=== PATIENT | female | born 1990 | race Caucasian/White ===

== ENCOUNTER 2016-09-22 10:09 | Emergency (ER) | payer MEDICAID ==
[2016-09-22 10:45] VITALS: BP 109/64; TEMP 98.2; O2SAT 99
--- NOTE | 2016-09-22 11:11 | ED.PDOC ---
History of Present Illness - General Chief Complaint: Skin/Abrasion/Tear Stated Complaint: abscess Time Seen by Provider: 09/22/16 11:01 Source: patient, RN notes reviewed, Vital Signs reviewed Exam Limitations: no limitations - History of Present Illness Initial Comments: Patient is a 26 y/o female who had a small papule on her anterolateral left thigh two days ago. Since that time, it has become more red and painful. Now the redness is increased and the pain feels like it goes down to her bone. She denies any fever or chills. Timing/Duration: getting worse, other - 2 days ago Severity: moderate Improving Factors: nothing Worsening Factors: nothing Associated Symptoms: denies symptoms Allergies/Adverse Reactions: Allergies Latex Allergy (Intermediate, Verified 09/22/16 10:45) Home Medications: Ambulatory Orders Sulfamethoxazole-Trimethoprim [Bactrim Ds 800-160 mg] 1 tab PO BID #14 tab 09/22 Review of Systems - Review of Systems Constitutional: States: no symptoms reported EENTM: States: no symptoms reported Respiratory: States: no symptoms reported Cardiology: States: no symptoms reported Gastrointestinal/Abdominal: States: no symptoms reported Genitourinary: States: no symptoms reported Musculoskeletal: States: no symptoms reported Skin: States: change in color, lesions Neurological: States: no symptoms reported Endocrine: States: no symptoms reported Hematologic/Lymphatic: States: no symptoms reported Past Medical History (General) - Patient Medical History Hx Cardiac Disorders: No Hx Hypertension: No Hx Diabetes: No Hx Cancer: Yes - skin - Vaccination History Hx Tetanus, Diphtheria Vaccination: No Hx Influenza Vaccination: No Hx Pneumococcal Vaccination: No - Social History Hx Tobacco Use: Yes Cigarettes Packs Per Day: 1 Hx Alcohol Use: No Hx Substance Use: No Hx Substance Use Treatment: No Hx Depression: No - Activities of Daily Living Hospice Agency (if applicable):: None - Female History Patient is a Female of Child Bearing Age (10 -59 yrs old): Yes Patient : No Family Medical History - Family History Mother Family History: No Known Living Status: Still Living Physical Exam - Physical Exam General Appearance: Alert, Comfortable, No apparent distress Eye Exam: bilateral normal Ears, Nose, Throat: hearing grossly normal Neck: full range of motion Respiratory: lungs clear, normal breath sounds, no respiratory distress, no accessory muscle use Cardiovascular/Chest: regular rate, rhythm, no edema, no gallop, no murmur Gastrointestinal/Abdominal: normal bowel sounds, non tender, soft, no organomegaly Back Exam: normal inspection Extremity: normal range of motion, no pedal edema, no calf tenderness Neurologic: alert, normal mood/affect, oriented x 3 Skin Exam: other - 2 cm round indurated lesion with an additiona 2 cm erythema surrounding it. Tender and hot to touch. No fluctuance. This is on the anterolateral left mid-thigh. Progress - Results/Orders Results/Orders: 09/22/16 10:35 Temperature 98.2 F Pulse Rate [ 88 pulse ox] Respiratory 18 Rate Blood Pressure 109/64 [Left Arm] O2 Sat by Pulse 99 Oximetry Departure - Departure Clinical Impression: Cellulitis Qualifiers: Site of cellulitis: extremity Site of cellulitis of extremity: lower extremity Laterality: left Qualifier Code: (L03.116) Cellulitis of left lower limb Time of Disposition: 11:15 Disposition: Discharge to Home or Self Care Condition: Excellent Departure Forms: ED Discharge - Pt. Copy, Patient Portal Self Enrollment Instructions: Cellulitis, DI for Cellulitis -- Adult Diet: resume usual diet Prescriptions: Sulfamethoxazole-Trimethoprim [Bactrim Ds 800-160 mg] 1 tab PO BID #14 tab Home Medications: Ambulatory Orders Sulfamethoxazole-Trimethoprim [Bactrim Ds 800-160 mg] 1 tab PO BID #14 tab 09/22 Additional Instructions: Follow up if lesion gets larger with increased pain.
== END 2016-09-22 11:25 | disposition left against medical advice (07) ==
LOC: ER 10:09
DX: L03.116 Cellulitis of left lower limb (principal); Z87.891 Personal history of nicotine dependence; Z91.040 Latex allergy status; Z85.828 Personal history of other malignant neoplasm of skin

== ENCOUNTER → 2016-11-18 | Outpatient (CLI) | payer SELFPAY | END | disposition home or self-care (01) | LOC: YCFC.O 12:30 | PROVIDERS: ATTEND Nurse Practitioner Family | DX: N64.52 Nipple discharge (principal) ==

== ENCOUNTER → 2016-12-02 | Outpatient (CLI) | payer OTHER ==
--- NOTE | 2016-12-03 10:27 | US ---
EXAM DESCRIPTION: Breast,Right CLINICAL HISTORY: 26 years Female, right breast pain. Nonspontaneous greenish nipple discharge on the right. COMPARISON: None. TECHNIQUE: Ultrasound of all four quadrants and the subareolar portion of the right breast. FINDINGS: No solid, cystic, or worrisome abnormality. IMPRESSION: BI-RADS 1: NORMAL/NEGATIVE FOLLOW-UP: Routine mammography screening to begin at age 38 Electronically signed by: Bob Ricardo MD 12/03/2016 10:26 AM CDT
== END | disposition home or self-care (01) ==
LOC: US 14:48
PROVIDERS: ATTEND Nurse Practitioner Family
DX: N64.52 Nipple discharge (principal); N64.4 Mastodynia

== ENCOUNTER 2017-10-13 11:48 | Emergency (ER) | payer SELFPAY | END 2017-10-13 12:20 | disposition left against medical advice (07) | LOC: ER 11:48 | DX: Z53.21 Procedure and treatment not carried out due to patient leaving prior to being seen by health care provider (principal) ==

== ENCOUNTER 2017-10-17 09:37 | Emergency (ER) | payer SELFPAY ==
[2017-10-17 09:56] VITALS: BP 113/76; TEMP 98.7; O2SAT 97
[2017-10-17] MEDS ORDERED: IBUPROFEN 200 MG TAB PO ONE (10:00)
--- NOTE | 2017-10-17 10:03 | ED.PDOC ---
History of Present Illness - General Chief Complaint: Neuro Symptoms/Deficits Stated Complaint: left arm numbness Time Seen by Provider: 10/17/17 09:49 Source: patient, old records Exam Limitations: no limitations - History of Present Illness Timing/Duration: other - INTERMITTANT X 1 YEAR Severity: moderate Improving Factors: nothing Worsening Factors: movement Associated Symptoms: muscle spasms, paresthesia Allergies/Adverse Reactions: Allergies Latex Allergy (Intermediate, Verified 09/22/16 10:45) Home Medications: Ambulatory Orders Sulfamethoxazole-Trimethoprim [Bactrim Ds 800-160 mg] 1 tab PO BID #14 tab 09/22 Review of Systems - Review of Systems Constitutional: States: no symptoms reported EENTM: States: no symptoms reported Respiratory: States: no symptoms reported Cardiology: States: no symptoms reported Gastrointestinal/Abdominal: States: no symptoms reported Genitourinary: States: no symptoms reported Musculoskeletal: States: see HPI Skin: States: no symptoms reported Neurological: States: no symptoms reported, see HPI, numbness, paresthesia, tingling Endocrine: States: no symptoms reported Hematologic/Lymphatic: States: no symptoms reported All other Systems: Reviewed and Negative Past Medical History (General) - Patient Medical History Hx Seizures: No Hx Stroke: No Hx Dementia: No Hx Asthma: No Hx of COPD: No Hx Cardiac Disorders: No Hx Congestive Heart Failure: No Hx Pacemaker: No Hx Hypertension: No Hx Diabetes: No Hx Gastroesophageal Reflux: No Hx Cancer: Yes - skin Surgical History: noncontributory - Vaccination History Hx Tetanus, Diphtheria Vaccination: No Hx Influenza Vaccination: No Hx Pneumococcal Vaccination: No - Social History Hx Tobacco Use: Yes Hx Alcohol Use: No Hx Substance Use: No Hx Substance Use Treatment: No Hx Depression: No - Activities of Daily Living Patient Lives Alone: No - WITH FAMILY Grooming Ability: Independent Eating (Feeding) Ability: Independent Toileting Ability: Independent - Female History Patient is a Female of Child Bearing Age (10 -59 yrs old): Yes Patient : No Family Medical History - Family History Mother Family History: No Known Living Status: Still Living Physical Exam - Physical Exam General Appearance: Alert, No apparent distress, Well Developed, Well Groomed Eye Exam: bilateral normal ENT Exam: normal ENT inspection Neck: tender lateral - TENDERNESS ON PALPATION OF LEFT C3/4/5 Respiratory: chest non-tender, lungs clear, normal breath sounds Cardiovascular/Chest: normal peripheral pulses, regular rate, rhythm, no murmur Peripheral Pulses: radial,right: 2+, radial,left: 2+ Gastrointestinal/Abdominal: normal bowel sounds, non tender Back Exam: normal inspection Extremities Exam: tenderness - LEFT TRICEPT REGION 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 DISCUSSED WITH PT THAT SHE WILL NEED A NON-EMERGENT MRI OF HER C-SPINE. WILL REFER TO [facility] FOR FOLLOW-UP Departure - Departure Clinical Impression: Cervical radiculopathy Time of Disposition: 10:10 - NEED TO FOLLOW UP WITH [facility] FOR FURTHER WORK-UP AND MRI REFERRAL Condition: Good Departure Forms: ED Discharge - Pt. Copy, Patient Portal Self Enrollment Activity: no pushing/pulling with affected limb Home Medications: Ambulatory Orders Sulfamethoxazole-Trimethoprim [Bactrim Ds 800-160 mg] 1 tab PO BID #14 tab 09/22
== END 2017-10-17 10:38 | disposition home or self-care (01) ==
LOC: ER 09:37
DX: M54.12 Radiculopathy, cervical region (principal); Z87.891 Personal history of nicotine dependence

== ENCOUNTER → 2017-11-11 | Outpatient (CLI) | payer MEDICAID | LOC: LAB.O 11:04 | PROVIDERS: ATTEND Nurse Practitioner Family | DX: N64.52 Nipple discharge (principal) ==